=== PATIENT | female | born 1960 | race Caucasian/White ===

== ENCOUNTER 2020-07-25 07:26 | Outpatient (CLI) | payer OTHER ==
[~2020-07-25] VITALS: Ht 154.9 cm; Wt 75.3 kg
[2020-07-25] MEDS ORDERED: albuterol 2.5 MG/3 ML nebule NEB PRN (08:25)
== END 2020-07-25 23:59 | disposition home or self-care (01) ==
LOC: RT 07:26
PROVIDERS: ATTEND Internal Medicine Pulmonary Disease
DX: J44.9 Chronic obstructive pulmonary disease, unspecified (principal)
CPT/HCPCS: 94060; 94727; 94729; 94760

== ENCOUNTER 2023-10-27 08:29 | Outpatient (CLI) | payer OTHER ==
[~2023-10-27] VITALS: Ht 195.6 cm; Wt 81.6 kg
[2023-10-27 08:54] LABS: TOTAL HEMOGLOBIN 16.9 G/dl (12.0-16.0)
[2023-10-27] MEDS ORDERED: albuterol 2.5 MG/3 ML nebule NEB ONE (09:10)
[2023-10-27 09:29] VITALS: PULSE 74; RESP 18; O2SAT 93
== END 2023-10-27 23:59 | disposition home or self-care (01) ==
LOC: RT 08:29
PROVIDERS: ATTEND Internal Medicine Pulmonary Disease
DX: J44.9 Chronic obstructive pulmonary disease, unspecified (principal); R94.2 Abnormal results of pulmonary function studies
CPT/HCPCS: 85018; 94060; 94727; 94729; 94760

== ENCOUNTER 2025-06-20 14:03 | Outpatient (CLI) | payer OTHER ==
[~2025-06-20] VITALS: Ht 153 cm; Wt 75.7 kg
[2025-06-20 14:49] LABS: TOTAL HEMOGLOBIN 17.3 G/dl (12.0-16.0)
[2025-06-20] MEDS: albuterol 2.5 MG/3 ML nebule NEB ONE (15:37)
[2025-06-20 15:44] VITALS: PULSE 84; RESP 16; O2SAT 93
[2025-06-20 15:54] VITALS: PULSE 78; RESP 16
--- NOTE | 2025-06-21 14:44 | PROCEDURE NOTE - Respiratory ---
Procedure Note-Respiratory Providers to Copies To 1: BRITTNEY COURTNEY MD Procedure Name: This is a complete pulmonary function study dated June 20 2025. Hemoglobin measurement was done as part of the study. Spirometry measurements: The forced vital capacity is normal. The FEV1 is severely reduced. The FEV1 ratio is also severely reduced. All of the measured flow rates show substantial reduction. After inhaled bronchodilator was administered, there is no appreciable change in the flow volume curve. Lung volume measurements: The total lung capacity is elevated. The residual volume and the functional residual capacity measurements are also somewhat elevated. This documents hyperinflation with air trapping within the lungs. Lung diffusion measurement: The DLCO is moderately reduced. The KVO me asurement is also reduced. The alveolar volume measurement is normal. Hemoglobin measurement is in the normal range. Airway resistance measurement: The airway resistance is elevated. Conclusion: This study shows severe abnormality. There is evidence for severe obstructive ventilatory defect. These findings are consistent with the patient's diagnosis of smoking-related COPD. It is strongly recommended that the patient abstain from cigarette smoking. The patient shows hyperinflation with air trapping. The lung diffusion capacity is reduced. These findings together suggests the presence of emphysema. Continued use of bronchodilator medication is recommended. We have a previous study for comparison dated October 27, 2023. Over the past two years the patient shows continued worsening of the FEV1 measurement as well as the DLCO measurement. This is likely related to ongoing cigarette smoking. The blood sample taken for hemoglobin measurement also shows 5% carboxyhemoglobin level. This indicates recent cigarette smoking. BRITTNEY COURTNEY MD Jun 21, 2025 14:44
== END 2025-06-20 23:59 | disposition home or self-care (01) ==
LOC: RT 14:03
PROVIDERS: ATTEND Internal Medicine Pulmonary Disease
DX: J44.9 Chronic obstructive pulmonary disease, unspecified (principal)
CPT/HCPCS: 85018; 94060; 94727; 94729; 94760